=== PATIENT | female | born 1950 | race American Indian/Alaskan Native ===

== ENCOUNTER 2017-02-28 11:40 | Outpatient (CLI) | payer MEDICARE ==
--- NOTE | 2017-02-28 12:17 | Mammography Report ---
BILATERAL MAMMOGRAM: FINDINGS: The breast tissue is heterogeneously dense, which could obscure detection of small masses (approximately 50%-75% glandular). No mass, distortion, suspicious calcification, or skin change is seen. There are no significant changes when compared to prior exams dating back to 2015. CAD was utilized. IMPRESSION: Negative mammogram. There is no mammographic evidence of malignancy. RECOMMENDATION: Follow-up per ACS guidelines. BI-RADS CATEGORY: 1 = Negative ACR BI-RADS MAMMOGRAPHIC CODES: 0 = Needs additional imaging evaluation; 1 = Negative; 2 = Benign; 3 = Probably benign; 4 = Suspicious; 5 = Malignant; 6 = Known biopsy-proven malignancy COMMENT: 1. Dense breast tissue, i.e., adenosis, fibrocystic changes, etc., may obscure an underlying neoplasm. 2. Approximately 10% of cancers are not detected with mammography. 3. A negative mammography report should not delay biopsy if a clinically suspicious mass is present. COMMENT: Patient follow-up letters are generated in [employer].
== END 2017-02-28 11:41 | disposition home or self-care (01) ==
LOC: MAMMO 11:40
PROVIDERS: ATTEND Family Medicine Adult Medicine
DX: Z12.31 Encounter for screening mammogram for malignant neoplasm of breast (principal); I10 Essential (primary) hypertension
CPT/HCPCS: 77067; G0202

== ENCOUNTER 2019-03-02 14:52 | Outpatient (CLI) | payer MEDICARE ==
--- NOTE | 2019-03-05 13:39 | Mammography Report ---
DIGITAL SCREENING MAMMOGRAM WITH CAD, 03/02/2019 INDICATION: Routine screening mammography. TECHNIQUE: Digital bilateral 2D mammography was obtained in the craniocaudal and mediolateral obliq ue projections. This examination was interpreted with the benefit of Computer-Aided Detection analysi s. COMPARISON: 03/01/2018 and 02/28/2017 FINDINGS: Breast Density: The breasts are heterogeneously dense, which may obscure small masses. There is no evidence of dominant mass, suspicious calcifications or architectural distortion in eithe r breast. IMPRESSION: No mammographic evidence of malignancy. Follow up recommendation: Routine yearly BI-RADS Category 1: Negative. A "normal" or negative report should not discourage follow up or biopsy of a clinically significant f inding. A written summary of these findings will be mailed to the patient. The patient will be entered into a mammography reporting system which will generate a reminder letter for the patient's next appointmen t at the appropriate interval. [employer] recommends yearly mammograms starting at age 40 and continuing as l gege as a woman is in good health. Breast MRI is recommended for women with an approximate 20-25% or greater lifetime risk of breast cancer, including women with a strong family history of breast or ova alan cancer or who have been treated for Hodgkin's disease. Signer Name: Jesse Grimm MD Signed: 03/05/2019 1:35 PM Workstation Name: [id number]
== END 2019-03-02 14:53 | disposition home or self-care (01) ==
LOC: MAMMO 14:52
PROVIDERS: ATTEND Family Medicine Adult Medicine
DX: Z12.31 Encounter for screening mammogram for malignant neoplasm of breast (principal)
CPT/HCPCS: 77067